=== PATIENT | male | born 2000 | race Caucasian/White ===

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

== ENCOUNTER 2020-05-16 21:22 | Emergency (ER) | payer OTHER ==
--- NOTE | 2020-05-16 21:24 | PDOC ---
Rapid Medical Evaluation Time Seen by Provider: 05/16/20 21:23 Medical Evaluation: Allergies Allergy/AdvReac Type Severity Reaction Status Date / Time No Known Allergies Allergy Verified 06/21/18 13:17 05/16/20 21:23 I have performed a brief in-person evaluation of this patient. CC: left ear pain PE: No tragal or mastoid tenderness. No discharge present. Orders: tylenol Patient to proceed to ED for further evaluation. Discharge Disposition - Diagnosis Left ear pain - Referrals - Patient Instructions - Post Discharge Activity
[2020-05-16] MEDS ORDERED: IBUPROFEN 600 MG TABLET (FP) PO ONE ×2 (21:28→21:42)
[2020-05-16 21:39] VITALS: BP 129/61; PULSE 87; TEMP 98.3; BMI 40.7
--- NOTE | 2020-05-16 21:46 | PDOC ---
History of Present Illness - General Chief Complaint: Pain Stated Complaint: LT EAR PAIN Time Seen by Provider: 05/16/20 21:23 - History of Present Illness Initial Comments: 05/16/20 21:45 20-year-old male denies comorbidities presents for evaluation of left ear pain x4 days no systemic symptoms Past History - Medical History Allergies/Adverse Reactions: Allergies Allergy/AdvReac Type Severity Reaction Status Date / Time No Known Allergies Allergy Verified 06/21/18 13:17 Home Medications: Ambulatory Orders Naproxen 500 mg PO BID PRN #20 tablet 06/21/18 Neomycin/Polymyxin B/Hydrocort [Ykubllzz-Qkvfhunbu-Mu Ear Susp] 4 drop OT BID 5 Days #1 bottle 06/21/18 Neomycin/Polymyxin B/Hydrocort [Voubynby-Joioqryfm-Zw Ear Soln] 5 drop OS QID 7 Days #1 solution 05/16/20 COPD: No - Psycho-Social/Smoking History Smoking History: Never smoked - Substance Abuse Hx (Audit-C & DAST Scrn) How often the patient has a drink containing alcohol: Never Score: In Men: 4 or > Positive; In Women: 3 or > Positive: 0 Screen Result (Pos requires Nsg. Audit-10AR): Negative Review of Systems - Review of Systems Constitutional: No: Fever HEENTM: Yes: Ear Pain *Physical Exam - Vital Signs Last Vital Signs Temp Pulse Resp BP Pulse Ox 98.3 F 87 20 129/61 99 05/16/20 21:30 05/16/20 21:30 05/16/20 21:30 05/16/20 21:30 05/16/20 21:30 - Physical Exam 05/16/20 21:45 GENERAL: The patient is awake, alert, and fully oriented, in no acute distress. HEAD: Normal with no signs of trauma. EYES: sclera anicteric, conjunctiva clear. ENT: Right ear canal and tympanic membrane are normal left ear canal is erythemic with What appears to be purulent material tympanic membrane is mildly erythemic without retraction EXTREMITIES: Normal range of motion, no edema. No clubbing or cyanosis. No cords, erythema, or tenderness. NEUROLOGICAL: Cranial nerves II through XII grossly intact. PSYCH: Normal mood, normal affect. SKIN: Warm, Dry, normal turgor, no rashes or lesions noted. ED Treatment Course - Medications Given in the ED: ED Medications Discontinued Medications Generic Name Dose Route Start Last Admin Trade Name Leo PRN Reason Stop Dose Admin Ibuprofen 600 mg 05/16/20 21:28 05/16/20 21:41 Motrin - PO 05/16/20 21:29 600 mg ONCE ONE Administration Medical Decision Making - Medical Decision Making 05/16/20 21:44 Otitis externa antibiotic with hydrocortisone for pain follow-up with ENT I have reviewed the pathophysiology with the patient. They are in agreement with the treatment plan all questions were answered to their satisfaction. Understanding for follow-up without fail was also conveyed to the patient. Again they are in agreement. Discharge - Discharge Information Problems reviewed: Yes Clinical Impression/Diagnosis: Left ear pain, Otitis externa Condition: Stable Disposition: HOME - Admission No - Additional Discharge Information Prescriptions: Neomycin/Polymyxin B/Hydrocort [Evqpvjec-Mkfsazajc-Vb Ear Soln] 5 drop OS QID 7 Days #1 solution - Follow up/Referral Referrals: Brandon Varela MD [Staff Physician] - - Patient Discharge Instructions Additional Instructions: Please use the antibiotic eardrops as directed and return to the emergency room for worsening symptoms. Tylenol Motrin as directed for pain. And without fail follow-up with ear nose and throat doctor in 1 to 2 days for further evaluation and treatment options. - Post Discharge Activity
== END 2020-05-16 21:45 | disposition home or self-care (01) ==
LOC: JERFT 21:22 → JER 21:22 → JERFT 21:45
DX: H92.02 Otalgia, left ear (principal)
CPT/HCPCS: 99283-25